=== PATIENT | female | born 1935 | race Caucasian/White ===

== ENCOUNTER 2019-03-25 13:59 | Emergency (ER) | payer MEDICAID, OTHER ==
[~2019-03-25] VITALS: Ht 165.1 cm; Wt 81.0 kg
[~2019-03-25 13:59] MED LIST: AMLO-145 PO; ASPI-535 PO; ATOR20TA38 PO; AZIT250T PO; BENA20TA4 PO; BENA40TA54 PO; CHLO25TA2 PO; CHOL100062 PO; GLIM2TAB PO; LACR35O LEFT EYE; MED4DP PO; METF-849 PO; METF100010 PO; METH-493 PO; PRAV20TA2 PO; PROP10TA6 PO; VALA500T4 PO
[2019-03-25 14:10] VITALS: Ht 165.1 cm; Wt 81.0 kg
[2019-03-25] MEDS ORDERED: METHYLPREDNISOLONE 125 MG INJ IV ONE (15:00)
[2019-03-25 16:00] VITALS: BP 117/53; PULSE 61; RESP 17
--- NOTE | 2019-03-25 16:40 | ERD ---
ER Documentation Chief Complaint Chief Complaint cough x 4 weeks with left sided facial droop started 10 am this morning HPI This is an 83-year-old female who is here for cough for 4 days with occasional productive white sputum but there is no fever. No shortness of breath or chest pain. Patient woke up this morning with her left face weak. She woke up at 6 AM but did not tell her family about it until 10 AM. Patient denies any numbness of the face, numbness or weakness to her arms or legs, no speech difficulty no difficulty swallowing, no hyperacusis, no significant change in taste. ROS All systems reviewed and are negative except as per history of present illness. Medications Home Meds Reported Medications Benazepril Hcl* (Benazepril Hcl*) 20 Mg Tablet, 20 MG PO DAILY, #30 TAB 03/25/19 Propranolol Hcl* (Propranolol Hcl*) 10 Mg Tablet, 10 MG PO BID, TAB 03/25/19 Glimepiride* (Glimepiride*) 2 Mg Tablet, 2 MG PO WITH BREAKFAST, TAB 03/25/19 Cholecalciferol* (Vitamin D3*) 1,000 Unit Tablet, 1000 UNIT PO DAILY, TAB 03/25/19 Methimazole* (Methimazole*) 5 Mg Tablet, 5 MG PO DAILY, TAB 03/25/19 Atorvastatin Calcium* (Atorvastatin Calcium*) 20 Mg Tablet, 20 MG PO QHS, #30 TAB 03/25/19 Metformin Hcl* (Metformin Hcl*) 1,000 Mg Tablet, 1000 MG PO WITH BREAKFAST DINNE, #60 TAB 03/25/19 Discontinued Reported Medications Aspirin Ec (Aspir 81) 81 Mg Tablet.dr, 81 MG PO DAILY 09/20/13 Chlorthalidone* (Chlorthalidone*) 25 Mg Tablet, 25 MG PO daily 03/12/13 Benazepril Hcl* (Lotensin*) 40 Mg Tablet, 20 MG PO daily 03/12/13 Amlodipine Besylate* (Amlodipine Besylate*) 5 Mg Tablet, 5 MG PO daily 03/12/13 Pravastatin Sodium (Pravastatin Sodium) 20 Mg Tablet, 20 MG PO daily 03/12/13 Metformin* (Glucophage*) 500 Mg Tab, 500 MG PO bid 03/12/13 Allergies Allergies: Coded Allergies: No Known Allergy (Unverified , 03/25/19) PMhx/Soc History of Surgery: Yes (HERNIA, GALLBLADDER REMOVED) Anesthesia Reaction: No Hx Respiratory Disorders: No Hx Cardiac Disorders: Yes (HTN, HIGH CHOLESTEROL) Hx Psychiatric Problems: No Hx Miscellaneous Medical Probl: Yes (DM) Hx Alcohol Use: No Hx Substance Use: No Hx Tobacco Use: No Smoking Status: Never smoker FmHx Family History: No coronary disease Physical Exam Vitals Vital Signs Date Temp Pulse Resp B/P (MAP) Pulse Ox O2 O2 Flow FiO2 Time Delivery Rate 03/25/19 61 17 117/53 98 Room Air 16:00 (74) 03/25/19 68 16 133/46 99 Room Air 15:00 (75) 03/25/19 98.2 67 18 159/50 97 14:10 (86) Physical Exam Const: Well-developed, well-nourished Head: Atraumatic, normocephalic Eyes: Normal Conjunctiva, PERRLA, EOMI, normal sclera, no nystagmus ENT: Normal External Ears, Nose and Mouth, moist mucus membranes. Neck: Full range of motion. No meningismus, no lymphadenopathy. Resp: Clear to auscultation bilaterally, no wheezing, rhonchi, rales Cardio: Regular rate and rhythm, no murmurs, S1 S2 present Abd: Soft, non tender x 4, non distended. Normal bowel sounds, no guarding or rebound, no pulsitile abdominal masses or bruits Skin: No petechiae or rashes, no ecchymosis , no maculopapular rash Back: No midline or flank tenderness Ext: No cyanosis, or edema, FROM x 4, normal inspection, neurovascularly intact x 4 Neur: Awake and alert, STR 5/5 x 4, sensation intact x 4, no focal findings, cerebellum intact, the left face has complete paralysis, the left forehead is involved, there is loss of forehead wrinkles and movement, the patient has a difficult time closing her left eye, the left eyebrow does not raise, there is no tongue deviation, facial sensation is intact, no drooling but there is a bit of excessive tearing. Psych: Normal Mood and Affect Result Diagram: 03/25/19 1502 Results 24 hrs Laboratory Tests Test 03/25/19 15:02 White Blood Count 7.5 10^3/ul Red Blood Count 4.06 10^6/ul Hemoglobin 12.3 g/dl Hematocrit 36.0 % Mean Corpuscular Volume 88.7 fl Mean Corpuscular Hemoglobin 30.3 pg Mean Corpuscular Hemoglobin Concent 34.2 g/dl Red Cell Distribution Width 12.4 % Platelet Count 335 10^3/UL Mean Platelet Volume 9.5 fl Immature Granulocytes % 0.100 % Neutrophils % 48.5 % Lymphocytes % 37.0 % Monocytes % 8.0 % Eosinophils % 5.5 % Basophils % 0.9 % Nucleated Red Blood Cells % 0.0 /100WBC Immature Granulocytes # 0.010 10^3/ul Neutrophils # 3.7 10^3/ul Lymphocytes # 2.8 10^3/ul Monocytes # 0.6 10^3/ul Eosinophils # 0.4 10^3/ul Basophils # 0.1 10^3/ul Nucleated Red Blood Cells # 0.0 10^3/ul Current Medications Medications Dose Sig/Arley Start Time Status Last (Trade) Ordered Route PRN Stop Time Admin Dose Reason Admin 125 mg ONCE ONCE 03/25/19 DC 03/25/19 Methylprednis IV 15:00 15:05 olone Sodium 03/25/19 15:01 Succinate (Solu-Medrol) Procedures/[place] [id number] Radiology Main Line: [phone] DIAGNOSTIC IMAGING REPORT Patient: SIOBHAN TINEO : 1935 Age: 83 Sex: F MR #: [id number] DOS: 03/25/19 1432 Ordering MD: ELLEN JOHNSON DO Location: E/R Room/Bed: PROCEDURE: CT Brain without contrast. CLINICAL INDICATION: Headache TECHNIQUE: A CT of the brain was performed on a multidetector CT scanner utilizing axial imaging from the skull base through the vertex without IV contrast. Multiplanar reformatted images were made. Images were reviewed on a PACS workstation. The CTDIvol is 40 mGy and the DLP is 555 mGycm. DICOM images are available. One or more of the following dose reduction techniques were utilized: 1.) Automated exposure control 2.) Adjustment of the mA +/- kV according to patient's size 3.) Use of iterative reconstruction technique. COMPARISON: None FINDINGS: There is no intracranial hemorrhage, mass effect, or midline shift. No extra- axial fluid collection is seen. There is mild to moderate age appropriate diffuse cerebral volume loss with sulcal and ventricular dilatation. Ventricles are of normal configuration. Mild periventricular white matter disease is present in both cerebral hemispheres with no associated mass effect. Vascular calcifications are present at the base of the brain. the perrin white matter differentiation appears well-preserved. The visualized paranasal sinuses and osseous structures are grossly unremarkable. IMPRESSION: Age-appropriate atrophy. Mild white matter disease compatible with chronic small vessel ischemia. No intracranial hemorrhage, mass or evidence of acute transcortical infarct. .Krish Coleman MD, MD Date Time Electronically viewed and signed by .Krish Coleman MD, MD on 03/25/2019 15:47 .A/ CC: ELLEN JOHNSON DO [id number] [place] [id number] Radiology Main Line: [phone] DIAGNOSTIC IMAGING REPORT Patient: SIOBHAN TINEO : 1935 Age: 83 Sex: F MR #: [id number] DOS: 03/25/19 1432 Ordering MD: ELLEN JOHNSON DO Location: E/R Room/Bed: PROCEDURE: XR Chest. CLINICAL INDICATION: Shortness of breath and headache TECHNIQUE: Single portable view of the chest was obtained COMPARISON: CR CHEST 09/30/2013; CR CHEST 09/20/2013; CR CHEST 03/12/2013 FINDINGS: The trachea is midline. The cardiac silhouette is enlarged and pulmonary vascularity are within normal limits. The lungs are clear. The costophrenic angles are sharp. There is atherosclerotic calcification of the aortic knob. IMPRESSION: 1. Cardiomegaly and atherosclerotic disease. No evidence of acute cardiopulmonary disease. RPTAT: AAPP Kasey Munoz, Physician Date Time Electronically viewed and signed by Kasey Munoz, Physician on 03/25/2019 15:24 JL/ CC: ELLEN JOHNSON DO [id number] There is no evidence of pneumonia. Patient clinically strongly represents left- sided Becker's palsy. I did give her a dose of Solu-Medrol IV, I will discharge home with valacyclovir, Medrol Dosepak, Lacri-Lube, we did give instructions about eye care, and Z-Fritz for bronchitis Departure Diagnosis: Primary Impression: Left-sided Becker's palsy Additional Impression: Bronchitis Condition: Stable ELLEN JOHNSON DO Mar 25, 2019 16:40
== END 2019-03-25 17:16 | disposition home or self-care (01) ==
LOC: E/R 13:59
DX: J40 Bronchitis, not specified as acute or chronic (principal); E11.9 Type 2 diabetes mellitus without complications; I10 Essential (primary) hypertension; G51.0 Bell's palsy; Z79.82 Long term (current) use of aspirin; Z79.84 Long term (current) use of oral hypoglycemic drugs
CPT/HCPCS: 36415; 70450; 71045; 80048; 85025; 96374; J2930; Z7502